=== PATIENT | female | born 1965 | race Caucasian/White ===

== ENCOUNTER 2021-09-04 16:30 | Inpatient (IN) | payer SELFPAY ==
[~2021-09-04] VITALS: Ht 165.1 cm; Wt 67.5 kg
[~2021-09-04 16:30] MED LIST: ATENOLOL25 MG PO; EFFEXOR-XR150 MG PO; LEVOTHROID0.2 M1 PO; LISINOPRIL20 MG PO; LOPRESSOR 550 MG/TAB PO; LORTAB 5/500 501 TAB PO; PRINIVIL10 MG PO; ROXICODONE15 MG PO; SYNTHROID 0.10.15 MG PO; TENORMIN 5050 MG/TAB PO; ZESTRIL40 MG PO
[2021-09-04 16:54] VITALS: BP 96/52; PULSE 111; TEMP 98.5
[2021-09-04] MEDS ORDERED: LOPRESSOR 550 MG/TAB PO (17:01)
[2021-09-04] MEDS ORDERED: CYMBALTA 60MG60 MG PO (17:02)
[2021-09-04] MEDS ORDERED: FOSAMAX5 MG PO (17:06)
[2021-09-04] MEDS ORDERED: MS CONTIN 115 MG/TAB PO (17:07)
[2021-09-04] MEDS ORDERED: FLEXERIL5 MG PO (17:08)
--- NOTE | 2021-09-04 18:28 | NUR ---
PT LAYING SUPINE IN BED ON ROOM AIR. PT STATES THAT SHE IS HAVING SOME NAUSEA. PT WAS GIVEN A TUB INCASE SHE NEEDS TO THROW UP. PT STATES HER MOUTH IS VERY DRY. GAVE HER SOME ICE CHIPS, WATER AND MOUTH SWABS. PT STATES SHE DOES NOT WANT ANYHTING TO EAT. PT STATES THAT SHE IS JUST TIRED AND REQUESTED A COLD WASHCLOTH FOR HER FACE. WASHCLOTH WAS GIVEN TO HER AND BLINDS WERE LOWERED SO THAT SHE IS ABLE TO REST QUIETLY. PT STATES NO OTHER NEEDS AT THIS TIME. WAS CALLED AND INFORMED THAT PT WAS HERE. ORDERED FLUIDS AND RENAL DIET. ORDERS WER PUT IN AND FLUIDS STARTED. RAYO IS DRAINING CLEAR YELLOW URINE AT BEDSIDE. PT ON ROOM AIR. CALL LIGHT IS WITHIN REACH.
[2021-09-04 19:47] VITALS: BP 94/50; PULSE 112; TEMP 98.1
[2021-09-04 23:48] VITALS: BP 102/57; PULSE 107; TEMP 98.5
[2021-09-05 04:17] VITALS: BP 109/50; PULSE 56; TEMP 98.4
--- NOTE | 2021-09-05 06:45 | NUR ---
Report received, assumed care for dayshift.
[2021-09-05 07:42] VITALS: BP 99/48; PULSE 111; TEMP 98
--- NOTE | 2021-09-05 08:20 | NUR ---
Dr Kaur called with new lab orders. Placed at this time.
[2021-09-05 08:54] LABS: MEAN CELL VOLUME 74 fl (80.0-100.0); MEAN CORPUSCULAR HGB CONC 34 g/dl (33.0-37.0); MEAN PLATELET VOLUME 10.1 fl (7.4-10.4); PLATELET COUNT 504 K/mm3 (130-400); RED BLOOD COUNT 3.77 M/mm3 (4.10-5.30); REDCELL DISTRIBUTION WIDTH-CV 16.3 % (11.5-14.5)
[2021-09-05 08:56] LABS: HEMOGLOBIN 9.5 g/dl (12.5-16.0); MEAN CORPUSCULAR HEMOGLOBIN 25 pg (27-31)
[2021-09-05 09:08] LABS: ANISOCYTOSIS 1+; BAND 11 % (0-10); LYMPHOCYTE 6 % (20.0-51.0); MICROCYTOSIS 1+; NEUTROPHILS 75 % (42.0-75.2); PLATELET ESTIMATE INCREASED (NORMAL)
[2021-09-05 09:10] LABS: ALBUMIN 2.2 gm/dL (3.5-5.0); ALKALINE PHOSPHATASE 159 U/L (40-150); ANION GAP 20 mmol/L (7-16); AST,SGOT 15 U/L (5-34); BILIRUBIN,TOTAL 0.3 mg/dL (0.2-1.2); BLOOD UREA NITROGEN 101 mg/dL (10-20); CALCIUM 6.6 mg/dL (8.4-10.2); CHLORIDE 100 mmol/L (98-107); CREATININE, serum 7.49 mg/dL (0.57-1.11); GLUCOSE 88 mg/dL (70-99); POTASSIUM 4.1 mmol/L (3.5-4.5); SODIUM 130 mmol/L (136-145); TOTAL PROTEIN 5.9 gm/dL (6.2-8.1)
[2021-09-05 09:21] LABS: ALANINE AMINOTRANSFERASE < 6 U/L (0-55)
[2021-09-05 09:23] LABS: CARBON DIOXIDE 10 mmol/L (22-29)
--- NOTE | 2021-09-05 09:23 | NUR ---
CRITICAL CO2 LEVEL CALLED INTO [facility] ON ICU
--- NOTE | 2021-09-05 10:57 | NUR ---
SW met with patient to complete intake. Patient provides that she lives in [place] with her Julian [phone]. Patient states that she does not use DME and is independent with ADL's. PCP is Dr. Rodríguez, and pharmacy is [facility]. Patient states that she does not have anyone appointed as her DPOA/HC and does not wish to appoint anyone at this time. Patient states that she plans to return to her home upon DC. SW will continue to follow. DC plan: home
[2021-09-05 13:12] VITALS: BP 96/50; PULSE 111; TEMP 97.7
[2021-09-05 16:51] VITALS: BP 101/52; PULSE 115; TEMP 97.6
[2021-09-05 17:54] LABS: CREATININE, serum 6.56 mg/dL (0.57-1.11); FRACTIONAL EXCRETION OF NA+ 2.49 %
--- NOTE | 2021-09-05 18:02 | NUR ---
Patient had an uneventful day. Denied pain/nausea/shortness of breath. VS remained stable. 1/2NS@75ml/hr to left AC 20g. Schenider cath with yellow urine. SCDs bilat. Tele report ST. Denies current needs. Call light in reach. Will monitor.
[2021-09-05 19:37] VITALS: BP 121/73; PULSE 112; TEMP 97.7
--- NOTE | 2021-09-05 21:11 | NUR ---
Patient is in restroom. Assisted. Alert and oriented x 4, Tachycardic. Receiving 75ML/HR NS. Telemetry in place. Assessment completed, medications provided. No other needs at this time. Call maurice wing.
[2021-09-05 22:00] LABS: CLOSTRIDIUM DIFF A/B NEG; CLOSTRIDIUM DIFF A/B INTERP No C.diff present
[2021-09-05 23:54] VITALS: BP 101/66; PULSE 115; TEMP 98
[2021-09-06 03:42] VITALS: BP 114/62; PULSE 112; TEMP 97.6
--- NOTE | 2021-09-06 06:30 | NUR ---
Report received, assumed care for day shift.
[2021-09-06 06:41] LABS: MEAN CELL VOLUME 75 fl (80.0-100.0); MEAN CORPUSCULAR HGB CONC 34 g/dl (33.0-37.0); MEAN PLATELET VOLUME 10.3 fl (7.4-10.4); PLATELET COUNT 532 K/mm3 (130-400); RED BLOOD COUNT 3.63 M/mm3 (4.10-5.30); REDCELL DISTRIBUTION WIDTH-CV 15.9 % (11.5-14.5)
[2021-09-06 06:43] LABS: HEMATOCRIT 27.3 % (37.0-47.0); HEMOGLOBIN 9.2 g/dl (12.5-16.0); MEAN CORPUSCULAR HEMOGLOBIN 25 pg (27-31)
[2021-09-06 07:02] LABS: ALBUMIN 2.1 gm/dL (3.5-5.0); CALCIUM 7.5 mg/dL (8.4-10.2); CREATININE, serum 4.58 mg/dL (0.57-1.11); PHOSPHOROUS 3.3 mg/dL (2.3-4.7); POTASSIUM 3.8 mmol/L (3.5-4.5)
--- NOTE | 2021-09-06 07:40 | NUR ---
Sarai Pino, construction equipment mechanic helper for nephrology notified of critical CO2 of 11. New orders received and initiated.
[2021-09-06 07:52] VITALS: BP 112/66; PULSE 117; TEMP 98.1
--- NOTE | 2021-09-06 08:40 | NUR ---
Assessment complete. A&Ox3-very drowsy but answers questions appropriately. Denies pain/shortness of breath. States she is still nauseated intremittently. VS remaine stable. TELE reporting ST. Schneider cath with clear yellow urine. Left AC 20g with 1/2NS@75ml/hr infusing without difficulty. Right AC 20g flushes without difficulty. Noted to have swelling in right hand to elbow-1+. Plan of care discussed for this shift to include meds/IV fluids/calling for questions/concerns. Verbalizes understanding. Call light in reach. Will monitor.
[2021-09-06 12:21] VITALS: BP 124/64; PULSE 104; TEMP 98.2
--- NOTE | 2021-09-06 12:33 | NUR ---
Called with c/o abdominal cramping and nausea. States it is coming in waves-zofran/tylenol given per dr order. Will monitor.
[2021-09-06 16:23] VITALS: BP 127/75; PULSE 117; TEMP 98.4
--- NOTE | 2021-09-06 17:05 | NUR ---
Patient c/o nausea x1 this shift and received zofran with good results. Has tolerated clear liquids but is not tolerating ordered diet. VS remain stable. Schneider cath with clear yellow urine. 1/2NS@50mls/hr to left AC infusing without difficulty. Noted to have +2 edema to right upper extremity from fingers to elbow area. Patient states this is baseline due to recent fracture. Denies current needs. Call light in reach. Will monitor.
[2021-09-06 19:56] VITALS: BP 139/68; PULSE 123; TEMP 97.9
[2021-09-06 23:54] VITALS: BP 132/85; PULSE 115; TEMP 99.4
[2021-09-07 03:35] VITALS: BP 139/82; PULSE 121; TEMP 99
--- NOTE | 2021-09-07 06:26 | NUR ---
ASSUMED CARE OF PATIENT AFTER RECEIVING BEDSIDE REPORT. ASSESSMENT COMPLETED, VSS. PATIENT STATED PAIN IS NOT BEING WELL CONTROLLED AND IS ON MORPHINE AT BASELINE FOR PAIN. RN RELAYED THIS TO DR. CHAVIRA AND CRUZ ZHANG. NO CHANGES TO PAIN REGIMINE AT THIS TIME. PATIENT ALSO STATED NAUSEA IS NOT RELIEVED BY ZOFRAN, ORDER RECEIVED FROM CRUZ ZHANG TO INCREASE ZOFRAN TO 8MG. NO ACUTE EVENTS OVERNIGHT. BEDSIDE REPORT TO BE GIVEN TO ONCOMING SHIFT.
[2021-09-07 06:37] LABS: HEMOGLOBIN 10.2 g/dl (12.5-16.0); MEAN CELL VOLUME 74 fl (80.0-100.0); MEAN CORPUSCULAR HEMOGLOBIN 25 pg (27-31); MEAN CORPUSCULAR HGB CONC 33 g/dl (33.0-37.0); MEAN PLATELET VOLUME 9.6 fl (7.4-10.4); PLATELET COUNT 558 K/mm3 (130-400); RED BLOOD COUNT 4.15 M/mm3 (4.10-5.30); REDCELL DISTRIBUTION WIDTH-CV 16.2 % (11.5-14.5)
[2021-09-07 06:41] LABS: HEMATOCRIT 30.6 % (37.0-47.0)
[2021-09-07 06:57] VITALS: BP 158/82; PULSE 122; TEMP 97.5
[2021-09-07 07:04] LABS: ALBUMIN 2.3 gm/dL (3.5-5.0); CALCIUM 8.7 mg/dL (8.4-10.2); CREATININE, serum 2.05 mg/dL (0.57-1.11); PHOSPHOROUS 3.4 mg/dL (2.3-4.7); POTASSIUM 3.3 mmol/L (3.5-4.5)
--- NOTE | 2021-09-07 08:25 | NUR ---
Assessment completed, alert/oriented, blood pressures improved bossman admitt/ she is still tachy -ST on tele and I will notify attending physician, her chief complaint is uncontrollable watery diarrhea/ GI panel was negative, nausea is resolve and denies any vomitting, acute on chornic renal insufficiency / having a renal US today to rule out ATN, glez in place and patent with clear yellow urine, she is tolerating PO intake and is on IVF, abx continue for now/ BC pending, denies other needs, will continue to monitor
[2021-09-07] MEDS ORDERED: NORVASC2.5 MG PO (10:44)
[2021-09-07 11:04] VITALS: BP 136/72; PULSE 125; TEMP 97.7
--- NOTE | 2021-09-07 12:21 | NUR ---
Elizabeth: Buddhist Situation: Sales And Marketing Analyst stopped by on rounds Background: Pt is doing well Assessment: Good conversation from [facility] Recommendation: Sales And Marketing Analyst will follow up as needed
--- NOTE | 2021-09-07 12:48 | NUR ---
The patient is self pay. [facility]
[2021-09-07 15:32] LABS: MUCOUS Present (NOT PRESENT); PH 6 (5-8); SQUAMOUS EPITHELIAL None Seen /hpf (0-10); URINE APPEARANCE Clear (CLEAR/HAZY); URINE BACTERIA Rare /hpf (NONE SEEN); URINE BILIRUBIN Negative (NEGATIVE); URINE BLOOD 2+ (NEGATIVE); URINE COLOR Yellow (YELLOW); URINE GLUCOSE Negative (NEGATIVE); URINE KETONE Trace (NEGATIVE); URINE LEUKOCYTE ESTERASE Negative (NEGATIVE); URINE NITRATE Negative (NEGATIVE); URINE PROTEIN(semi-quant) Negative (NEGATIVE); URINE RBC 20-50 /hpf (0-2); URINE UROBILINOGEN Negative (NEGATIVE)
[2021-09-07 15:38] LABS: COLLECTION METHOD CLEAN CATCH
[2021-09-07 16:01] VITALS: BP 137/76; PULSE 82; TEMP 97.9
[2021-09-07 20:10] VITALS: BP 145/78; PULSE 86; TEMP 98.5
--- NOTE | 2021-09-07 20:38 | NUR ---
DR CASTLE AND DR PENNINGTON CALLED FOR CONSULT AND OR GIVE UPDATE. 10 LOOSE STOOLS TODAY AND GEORGE NOT WORKING FOR N/V.
[2021-09-08] VITALS (11 sets, daily range): BP systolic 135–152; BP diastolic 76–85; PULSE 81–117; TEMP 97.5–99.2
[2021-09-08 06:21] LABS: MEAN CELL VOLUME 73 fl (80.0-100.0); MEAN CORPUSCULAR HGB CONC 33 g/dl (33.0-37.0); MEAN PLATELET VOLUME 9.3 fl (7.4-10.4); PLATELET COUNT 555 K/mm3 (130-400); RED BLOOD COUNT 3.91 M/mm3 (4.10-5.30)
[2021-09-08 06:24] LABS: HEMATOCRIT 28.7 % (37.0-47.0); HEMOGLOBIN 9.6 g/dl (12.5-16.0); MEAN CORPUSCULAR HEMOGLOBIN 25 pg (27-31)
[2021-09-08 06:41] LABS: ALBUMIN 2.3 gm/dL (3.5-5.0); CALCIUM 8.6 mg/dL (8.4-10.2); CREATININE, serum 1.12 mg/dL (0.57-1.11); PHOSPHOROUS 2.6 mg/dL (2.3-4.7); POTASSIUM 3.2 mmol/L (3.5-4.5)
--- NOTE | 2021-09-08 06:56 | NUR ---
Report received, assumed care for day shift.
--- NOTE | 2021-09-08 08:55 | NUR ---
Assessment complete. A&Ox3. Denies pain/nausea/shortness of breath. Denies stools. VS stable. TELE reporting regular SR-ST. Scoring 1 on detox protocol only for appetite. Patient states she is feeling better just weak. IV to left AC with 1/2NS@50ml/hr infusing without difficulty. Plan of care discussed for meds/stool specimen/calling for questions/concerns. Verbalizes understanding. Call light in reach. Will monitor.
--- NOTE | 2021-09-08 11:02 | NUR ---
Dr Rehman called for updates. Information given.
--- NOTE | 2021-09-08 11:51 | NUR ---
CK Burch notified of new ortho consult.
--- NOTE | 2021-09-08 12:10 | NUR ---
Sitting up in bed very tearful stating she cant believe she has let herself go like this. States she understands she should not be drinking and is going to try hard to get her health back on track. Did not take in any of the clear liquids provided earlier. Encouraged to at least try to order a lunch tray. Verbalizes understanding. Noted to have 99.2 oral temp/and 103 pulse at 2 hour vital check. No tremors/no anxiety. Denies any current needs. Call light in reach. Will monitor.
--- NOTE | 2021-09-08 14:10 | NUR ---
Continues to rest in bed watching TV. Much calmer now. Has tolerated clear liquids but still refusing solid foods. Denies pain/nausea/shortness of breath. VS remain stable. Denies current questions/concerns. Call light in reach. Will monitor.
--- NOTE | 2021-09-08 16:15 | NUR ---
Vancomycin Initial Dosing Pharmacy Note Ordering provider: Carlos Kaur MD Indication/duration: wrist infection, 14 days LABS: SCr 1.12, CrCl~46, GFR 51 Recommendation: Will give Vancomycin 1 gm IV q12h. Pharmacy will continue to closely monitor and check Vancomycin trough. Maintenance dose: 1 gram every 12 hours Trough goal: 15-20 ug/mL
--- NOTE | 2021-09-08 16:52 | NUR ---
This nurse called pharmacy for clarification on Vanco order-to give only the 1gram dose.
--- NOTE | 2021-09-08 18:43 | NUR ---
Patient had an uneventful night. Ortho seen patient at the end of this shift. Wrist x ray complete. IV to left AC with 1/2NS@50ml/hr-infusing without difficulty. TELE reports regular ST. VS remained stable. Denies current needs. Call light in reach. Will monitor.
[2021-09-09] VITALS (9 sets, daily range): BP systolic 130–150; BP diastolic 76–94; PULSE 72–101; TEMP 98–98.7
--- NOTE | 2021-09-09 05:25 | NUR ---
RESTED THROUGH THE NIGHT WITHOUT INCIDENT. NEEDS MET. CALL LIGHT WI REACH.
[2021-09-09 06:33] LABS: MEAN CELL VOLUME 73 fl (80.0-100.0); MEAN CORPUSCULAR HGB CONC 34 g/dl (33.0-37.0); RED BLOOD COUNT 3.95 M/mm3 (4.10-5.30); REDCELL DISTRIBUTION WIDTH-CV 16.3 % (11.5-14.5)
[2021-09-09 06:34] LABS: HEMATOCRIT 28.9 % (37.0-47.0); HEMOGLOBIN 9.9 g/dl (12.5-16.0); MEAN CORPUSCULAR HEMOGLOBIN 25 pg (27-31); PLATELET COUNT 452 K/mm3 (130-400)
[2021-09-09 06:56] LABS: ALBUMIN 2.3 gm/dL (3.5-5.0); CALCIUM 8.4 mg/dL (8.4-10.2); CREATININE, serum 0.78 mg/dL (0.57-1.11); PHOSPHOROUS 2.1 mg/dL (2.3-4.7); POTASSIUM 3.1 mmol/L (3.5-4.5)
--- NOTE | 2021-09-09 10:00 | NUR ---
Assessment completed, alert/oriented, vital signs stable, reprots abd pain worse this morining and also having some nausea/ Phenergan given IV, she reports still having watery stools but a little less frequent, glez remains in place and patent with clear yellow urine/ creat has normalized, WBC up today from yesterday/ no fevers, denies needs at this time, will continue to monitor
--- NOTE | 2021-09-09 11:01 | NUR ---
DENIA met with the patient to follow up and review discharge plan. The patient states that she is doing okay. She is hopeful that she can discharge soon. The patient plans on returning home with her . She states that the financial counselor has not met with her yet. DENIA contacted Georgina and asked that she meet with the patient about a possible Medicaid application. No additional needs at this time.
--- NOTE | 2021-09-09 14:20 | NUR ---
Georgina, with financial counseling, reports that she checked with her team and it does not look like the patient has any qualifying diagnoses to qualify her for Medicaid. Dr. Kaur then notified DENIA that the patient is going to need IV Vanco daily for six weeks upon discharge and that he would look at [facility] for the patient. DENIA informed Dr. Kaur how the patient does not have insurance and what Georgina with financial counseling said. DENIA contacted Dot at [facility] to inquire if they can do eric and do IV antibiotics, if uninsured. Dot reports that they just had a trauma come in and that one of their staff members, Edelmira, would have to contact DENIA back. DENIA met with the patient to discuss the option of coming to our Express Unit for the IV antibiotic. The patient states that she just talked to Dr. Kaur and that Dr. Kaur is going to switch her to an oral antibiotic. The patient is interested in obtaining a GoodRx discount card. DENIA to provide to the patient.
--- NOTE | 2021-09-10 | NUR ---
STARTED NEW LING TO LUE ARM. REMOVED BOTH IV DUE TO SOILED DRESSING TO L AC AND RUE SWELLING. CONTINUES ON ABX THERAPY. PATIENT HASN'T HAD ANY DIARHEA NOTED AT THIS TIME. DAY SHIFT NURSE STATED THAT PATIENT DID HAVE X2 EPISODES. CADE REMOVED AROUND 1730 PENDING VOID. PATIENT DID STATE THAT SHE VOIDED IN TOILET AND FLUSHED. EDUCATED PATIENT ON NOTIFYING NURSE TO ENSURE ADEQUATE VOID POST CADE REMOVAL. ELEVATING RUE AND APPLYING ICE ON AND OFF WHILE ASSESSING SKIN INTEGRITY. NO NAUSEA NOTED AT THIS TIME. WILL CONTINUE TO MONITOR CALL LIGHT MARK JOHNSON.
[2021-09-10 00:10] VITALS: BP 129/74; PULSE 80; TEMP 98.3
--- NOTE | 2021-09-10 03:02 | NUR ---
PATIENT DID HAVE LOOSE STOOL NOTED THIS EVENING, PROVIDED PRN IMMODIUM PATIENT REQUESTING STATED SHE DIDN'T WANT TO FALL ASLEEP AND HAVE ACCIDENT. PATIENT VOIDING WITHOUT DIFFICULTY POST VOID. SLEEPING AT THIS TIME RUE ELEVEATED ON PILLOW. WILL CONTINUE OT MONITOR FOR ANY CHANGES.
[2021-09-10 04:20] VITALS: BP 154/81; PULSE 71; TEMP 98.3
[2021-09-10 06:24] LABS: MEAN CELL VOLUME 75 fl (80.0-100.0); MEAN CORPUSCULAR HGB CONC 34 g/dl (33.0-37.0); MEAN PLATELET VOLUME 9.7 fl (7.4-10.4); RED BLOOD COUNT 3.64 M/mm3 (4.10-5.30); REDCELL DISTRIBUTION WIDTH-CV 16.7 % (11.5-14.5)
[2021-09-10 06:26] LABS: HEMATOCRIT 27.4 % (37.0-47.0); HEMOGLOBIN 9.2 g/dl (12.5-16.0); MEAN CORPUSCULAR HEMOGLOBIN 25 pg (27-31); PLATELET COUNT 309 K/mm3 (130-400)
[2021-09-10 06:47] LABS: ALBUMIN 2.3 gm/dL (3.5-5.0); CALCIUM 7.8 mg/dL (8.4-10.2); CREATININE, serum 0.71 mg/dL (0.57-1.11); PHOSPHOROUS 2.4 mg/dL (2.3-4.7); POTASSIUM 3.3 mmol/L (3.5-4.5)
[2021-09-10 08:00] VITALS: BP 162/87; PULSE 88; TEMP 98
[2021-09-10 11:51] VITALS: BP 157/95; PULSE 77; TEMP 97.9
[2021-09-10] MEDS ORDERED: DOXYCYCLINE HY100 MG PO (12:08)
[2021-09-10] MEDS ORDERED: IMODIUM 2MG CAPS2 MG PO (12:38)
--- NOTE | 2021-09-10 12:46 | NUR ---
The patient's attending is prescribing an oral antibiotic instead of IV. SW met with the patient and provided her with the GoodRx discount card. The patient had no concerns for SW and plans on returning home with her today. No additional needs at this time.
--- NOTE | 2021-09-10 14:16 | NUR ---
Assumed care from casino shift manager. Patient alert and oriented x4. VSS. Assessment performed. Patient denies pain at this time. AM meds administered.
--- NOTE | 2021-09-10 15:25 | NUR ---
Patient provided discharge instructions. information on medication, and follow up appointments and instructions. Patient denied any questions or concerns. IV dc'd. Patient escorted out via wheelchair.
== END 2021-09-10 14:21 | disposition home or self-care (01) | DRG 683 ==
LOC: MEDICAL 16:30
PROVIDERS: Nurse Practitioner; Registered Nurse; ADMIT Internal Medicine Nephrology
DX: N17.0 Acute kidney failure with tubular necrosis (principal); E87.2 Acidosis; E87.1 Hypo-osmolality and hyponatremia; I10 Essential (primary) hypertension; E05.00 Thyrotoxicosis with diffuse goiter without thyrotoxic crisis or storm; I95.9 Hypotension, unspecified; E86.9 Volume depletion, unspecified; D64.9 Anemia, unspecified; D72.829 Elevated white blood cell count, unspecified; D75.839 Thrombocytosis, unspecified; R19.7 Diarrhea, unspecified; N14.1 Nephropathy induced by other drugs, medicaments and biological substances; T39.395A Adverse effect of other nonsteroidal anti-inflammatory drugs [NSAID], initial encounter; T36.8X5A Adverse effect of other systemic antibiotics, initial encounter; Z87.891 Personal history of nicotine dependence; Z23 Encounter for immunization
CPT/HCPCS: C9113; J2543; J2550; J3370; J7050

== ENCOUNTER 2022-08-24 19:48 | Emergency (ER) | payer BC ==
[~2022-08-24] VITALS: Ht 165.1 cm; Wt 72.7 kg
[~2022-08-24 19:48] MED LIST changes: +CYMBALTA 60MG60 MG PO; +DOXYCYCLINE HY100 MG PO; +FLEXERIL5 MG PO; +FOSAMAX5 MG PO; +IMODIUM 2MG CAPS2 MG PO; +MS CONTIN 115 MG/TAB PO; +NORVASC2.5 MG PO
[2022-08-24 19:50] VITALS: TEMP 98.2
[2022-08-24 21:48] LABS: BASO # 0.1 K/mm3 (0.0-0.2); EOS # 0.5 K/mm3 (0.0-0.7); EOS % 7.3 % (0.0-4.0); GRAN # 4.5 K/mm3 (1.4-6.5); GRAN % 72.1 % (42.2-75.2); LYMPH # 0.8 K/mm3 (1.2-3.4); LYMPH % 12.9 % (20.0-51.0); MEAN CELL VOLUME 90 fl (80.0-100.0); MEAN CORPUSCULAR HGB CONC 32 g/dl (33.0-37.0); MEAN PLATELET VOLUME 9.3 fl (7.4-10.4); MONO # 0.4 K/mm3 (0.1-0.6); MONO % 6.4 % (1.7-9.3); PLATELET COUNT 303 K/mm3 (130-400); RED BLOOD COUNT 3.28 M/mm3 (4.10-5.30); REDCELL DISTRIBUTION WIDTH-CV 14.5 % (11.5-14.5)
[2022-08-24 21:49] LABS: HEMATOCRIT 29.5 % (37.0-47.0); HEMOGLOBIN 9.5 g/dl (12.5-16.0); MEAN CORPUSCULAR HEMOGLOBIN 29 pg (27-31)
[2022-08-24 21:59] LABS: ARTERIAL BLD GAS O2 SATURATION 95.8 % (92-100); ARTERIAL BLOOD GAS BASE EXCESS 0.6 (-2-2); ARTERIAL BLOOD GAS HCO3 26.5 meq/L (22-26); ARTERIAL BLOOD GAS PCO2 48.8 mmHg (35-45); ARTERIAL BLOOD GAS pH 7.35 (7.35-7.45)
[2022-08-24 22:02] LABS: ALBUMIN 3.8 gm/dL (3.5-5.0); BILIRUBIN,TOTAL 0.3 mg/dL (0.2-1.2); CALCIUM 9.5 mg/dL (8.4-10.2); CREATININE, serum 0.86 mg/dL (0.57-1.11); POTASSIUM 4.4 mmol/L (3.5-4.5); TOTAL PROTEIN 6.6 gm/dL (6.2-8.1)
[2022-08-25 00:30] LABS: COLLECTION METHOD IN
[2022-08-25 00:34] LABS: SQUAMOUS EPITHELIAL None Seen /hpf (0-10); URINE BACTERIA None Seen /hpf (NONE SEEN); URINE RBC None Seen /hpf (0-2)
[2022-08-25 00:35] VITALS: BP 145/90; PULSE 112
[2022-08-25 00:36] LABS: URINE APPEARANCE Clear (CLEAR/HAZY); URINE COLOR Yellow (YELLOW)
[2022-08-25 00:37] LABS: URINE BLOOD Negative (NEGATIVE); URINE GLUCOSE Negative (NEGATIVE); URINE KETONE Negative (NEGATIVE); URINE NITRATE Negative (NEGATIVE); URINE PROTEIN(semi-quant) Negative (NEGATIVE); URINE UROBILINOGEN 0.2 E.U/dL (0.2-1.0)
== END 2022-08-25 00:38 | disposition short-term general hospital (02) ==
LOC: COL.ER 19:48
PROVIDERS: Nurse Practitioner Primary Care
DX: S82.142A Displaced bicondylar fracture of left tibia, initial encounter for closed fracture (principal); S82.252A Displaced comminuted fracture of shaft of left tibia, initial encounter for closed fracture; R09.02 Hypoxemia; G89.29 Other chronic pain; Z79.1 Long term (current) use of non-steroidal anti-inflammatories (NSAID); Z28.310 Unvaccinated for COVID-19; W10.9XXA Fall (on) (from) unspecified stairs and steps, initial encounter; Y92.009 Unspecified place in unspecified non-institutional (private) residence as the place of occurrence of the external cause
CPT/HCPCS: J1885; Q9967

== ENCOUNTER 2023-09-03 12:15 | Emergency (ER) | payer OTHER ==
[~2023-09-03] VITALS: Ht 165.1 cm; Wt 59.1 kg
[~2023-09-03 12:15] MED LIST changes: +ATARAX 10MG10 MG/TAB PO; +CALCIUM-500 5001 CTB PO; +CARAFATE 1GM1 G PO; +CEFTIN 250250 MG/TAB PO; +DOXYCYCLINE 10100 MG PO; +EUTHYROX175 MCG PO; +FERRO-TIME325 MG PO; +FERROUSAL325 MG PO; +FLEXERIL 1010 MG/TAB PO; +FOSAMAX 70MG TA70 MG PO; +MOTRIN 800800 MG/TAB PO; +NEURONTIN600 MG/TAB PO; +OMNICEF 300MG300 MG PO; +OSCAL 500 TAB500 MG PO; +PEPCID 20MG TAB20 MG PO; +PREDNISONE20 MG PO; +PRINIVIL20 MG PO; +PROTONIX 40MG T40 MG PO; +VITAMIN C500 MG PO; +VITAMIN D250 MCG PO; +ZOCOR 20MG20 MG PO
[2023-09-03 12:26] VITALS: TEMP 97.8
[2023-09-03] MEDS ORDERED: AMITRIPTYLINE H25 M1 PO (12:35)
[2023-09-03] MEDS ORDERED: NORVASC 10MG10 MG PO (12:36)
[2023-09-03] MEDS ORDERED: VITAMIN D31000 I1 PO (12:39)
[2023-09-03] MEDS ORDERED: VOLTAREN GEL 1%1 TU TP (12:41)
[2023-09-03] MEDS ORDERED: CARDURA 2MG2 MG PO (12:41)
[2023-09-03] MEDS ORDERED: FERROUS SU325 MG/TAB PO (12:42)
[2023-09-03] MEDS ORDERED: NORCO 325 MG-51 TAB PO (12:43)
[2023-09-03] MEDS ORDERED: KEPPRA XR500 MG PO (12:44)
[2023-09-03] MEDS ORDERED: PROCTOCREAM-HC2.5% RC (12:44)
[2023-09-03] MEDS ORDERED: SYNTHROID0.175 MG PO (12:45)
[2023-09-03] MEDS ORDERED: BACTROBAN15 GM TOP (12:46)
[2023-09-03] MEDS ORDERED: PROTONIX 40MG T40 MG PO (12:46)
[2023-09-03 12:47] LABS: BASO # 0.1 K/mm3 (0.0-0.2); BASO % 0.5 % (0.0-2.0); EOS # 0.2 K/mm3 (0.0-0.7); EOS % 1.8 % (0.0-4.0); GRAN # 7.9 K/mm3 (1.4-6.5); LYMPH # 1.3 K/mm3 (1.2-3.4); LYMPH % 12.7 % (20.0-51.0); MEAN CELL VOLUME 75 fl (80.0-100.0); MEAN CORPUSCULAR HGB CONC 30 g/dl (33.0-37.0); MEAN PLATELET VOLUME 8.8 fl (7.4-10.4); MONO # 0.5 K/mm3 (0.1-0.6); MONO % 5.1 % (1.7-9.3); PLATELET COUNT 606 K/mm3 (130-400); RED BLOOD COUNT 3.83 M/mm3 (4.10-5.30); REDCELL DISTRIBUTION WIDTH-CV 17.2 % (11.5-14.5)
[2023-09-03] MEDS ORDERED: ZOCOR 20MG20 MG PO (12:47)
[2023-09-03] MEDS ORDERED: ULTRAM 50MG TAB50 MG PO (12:47)
[2023-09-03 12:50] LABS: HEMATOCRIT 28.7 % (37.0-47.0); HEMOGLOBIN 8.5 g/dl (12.5-16.0); MEAN CORPUSCULAR HEMOGLOBIN 22 pg (27-31)
[2023-09-03 13:02] LABS: ALBUMIN 3.2 g/dL (3.5-5.0); BILIRUBIN,TOTAL 0.2 mg/dL (0.2-1.2); CALCIUM 10.9 mg/dL (8.4-10.2); CREATININE, serum 1.92 mg/dL (0.57-1.11); POTASSIUM 5.6 mEq/L (3.5-4.5); TOTAL PROTEIN 8.5 g/dl (6.2-8.1)
[2023-09-03] MEDS ORDERED: TRIAMCINOLONE A15 G3 TP (13:06)
[2023-09-03] MEDS ORDERED: Doxycycline Monohydrate 100 MG CAP PO ONE (13:45)
[2023-09-03] MEDS ORDERED: DOXYCYCLINE HY100 MG PO (13:46)
[2023-09-03 14:05] VITALS: BP 122/78; PULSE 74
== END 2023-09-03 14:05 | disposition home or self-care (01) ==
LOC: COL.ER 12:15
PROVIDERS: Emergency Medicine
DX: N18.9 Chronic kidney disease, unspecified (principal); L01.00 Impetigo, unspecified; E87.5 Hyperkalemia

== ENCOUNTER 2023-09-28 12:30 | Inpatient (IN) | payer OTHER ==
[~2023-09-28] VITALS: Ht 165.1 cm; Wt 54.5 kg
[~2023-09-28 12:30] MED LIST changes: +AMITRIPTYLINE H25 M1 PO; +BACTROBAN15 GM TOP; +CARDURA 2MG2 MG PO; +FERROUS SU325 MG/TAB PO; +KEPPRA XR500 MG PO; +NORCO 325 MG-51 TAB PO; +NORVASC 10MG10 MG PO; +PROCTOCREAM-HC2.5% RC; +SYNTHROID0.175 MG PO; +TRIAMCINOLONE A15 G3 TP; +ULTRAM 50MG TAB50 MG PO; +VITAMIN D31000 I1 PO; +VOLTAREN GEL 1%1 TU TP
[2023-10-04] VITALS (7 sets, daily range): BP systolic 104–118; BP diastolic 60–74; PULSE 74–85; TEMP 98.1–98.4
[2023-10-04] MEDS ORDERED: Melatonin 3 MG TAB PO PRN (05:45)
[2023-10-04] MEDS ORDERED: diphenhydrAMINE 25 MG CAP PO PRN (05:45)
[2023-10-04] MEDS ORDERED: traMADol 50 MG TAB PO PRN (05:45)
[2023-10-04] MEDS ORDERED: oxyCODONE 5 MG TAB PO PRN (05:45)
[2023-10-04] MEDS ORDERED: Polyethylene Glycol 3350 17 GM PDS PO PRN (05:45)
[2023-10-04] MEDS ORDERED: Acetaminophen 325 MG TAB PO PRN (05:45)
[2023-10-04] MEDS ORDERED: LORazepam 0.5 MG TAB PO PRN (05:45)
[2023-10-04] MEDS ORDERED: tiZANidine 4 MG TAB PO PRN (05:45)
[2023-10-04] MEDS ORDERED: traZODone 50 MG TAB PO PRN ×2 (06:15→10:00)
[2023-10-04] MEDS ORDERED: levETIRAcetam 500 MG TAB PO SCH (09:00)
[2023-10-04] MEDS ORDERED: DULoxetine 60 MG CAP PO SCH (09:00)
[2023-10-04] MEDS ORDERED: Gabapentin 400 MG CAP PO SCH (09:00)
[2023-10-04] MEDS ORDERED: DAPTOmycin 400 MG in NS 8 ML IV SCH (09:00)
[2023-10-04] MEDS ORDERED: Sennosides/Docusate 8.6-50 MG TAB PO SCH (09:00)
[2023-10-04] MEDS ORDERED: Thiamine 100 MG TAB PO SCH (09:00)
[2023-10-04] MEDS ORDERED: Metoprolol Tartrate 50 MG TAB PO SCH (09:00)
[2023-10-04] MEDS ORDERED: Calcium Carb/Vit D3 500 mg-200 Units TAB PO SCH (09:00)
[2023-10-04] MEDS ORDERED: amLODIPine 10 MG TAB PO SCH (09:00)
[2023-10-04] MEDS ORDERED: Multivitamin TAB PO SCH (12:00)
[2023-10-04] MEDS ORDERED: Ferrous Sulfate 325 MG TAB PO SCH (12:00)
[2023-10-04] MEDS ORDERED: Gabapentin 300 MG CAP PO SCH (14:00)
[2023-10-04] MEDS ORDERED: Amitriptyline 25 MG TAB PO SCH (21:00)
[2023-10-05 05:32] VITALS: BP 111/66; PULSE 77; TEMP 97.8
[2023-10-05 07:00] VITALS: BP_SYST 111
[2023-10-05] MEDS ORDERED: Lidocaine 4% Topical Patch TP SCH (09:00)
[2023-10-05 17:49] VITALS: BP 122/73; PULSE 78; TEMP 98.2
[2023-10-05 18:50] VITALS: BP_SYST 122
[2023-10-05 22:04] VITALS: BP 103/64; PULSE 84
[2023-10-06 05:15] VITALS: BP 111/65; PULSE 98; TEMP 98
[2023-10-06 07:29] VITALS: BP_SYST 111
[2023-10-06] MEDS ORDERED: Methyl Salicylate/Menthol Cream 85 GM TUBE TP SCH (09:00)
[2023-10-06 16:56] VITALS: BP 99/63; PULSE 79; TEMP 98.4
[2023-10-06 19:06] VITALS: BP_SYST 99
[2023-10-06 21:50] VITALS: BP 129/71
[2023-10-07 05:29] VITALS: BP 108/68; PULSE 74; TEMP 98.2
[2023-10-07 07:00] VITALS: BP_SYST 108
[2023-10-07 16:28] LABS: BASO # 0.1 K/mm3 (0.0-0.2); BASO % 0.8 % (0.0-2.0); EOS # 0.6 K/mm3 (0.0-0.7); GRAN # 4.9 K/mm3 (1.4-6.5); GRAN % 61.1 % (42.2-75.2); LYMPH # 1.8 K/mm3 (1.2-3.4); LYMPH % 22.1 % (20.0-51.0); MEAN CELL VOLUME 77 fl (80.0-100.0); MEAN CORPUSCULAR HGB CONC 32 g/dl (33.0-37.0); MEAN PLATELET VOLUME 8.8 fl (7.4-10.4); MONO # 0.6 K/mm3 (0.1-0.6); MONO % 7.6 % (1.7-9.3); PLATELET COUNT 509 K/mm3 (130-400); RED BLOOD COUNT 3.26 M/mm3 (4.10-5.30)
[2023-10-07 16:30] LABS: HEMOGLOBIN 8.1 g/dl (12.5-16.0); MEAN CORPUSCULAR HEMOGLOBIN 25 pg (27-31)
[2023-10-07 16:49] LABS: ALBUMIN 2.9 g/dL (3.5-5.0); BILIRUBIN,TOTAL 0.2 mg/dL (0.2-1.2); C-REACTIVE PROTEIN 0.48 mg/dL (0.00-0.50); CALCIUM 10.2 mg/dL (8.4-10.2); CREATININE, serum 1.32 mg/dL (0.57-1.11); POTASSIUM 4.9 mEq/L (3.5-4.5); TOTAL PROTEIN 6.6 g/dl (6.2-8.1)
[2023-10-07 17:00] VITALS: BP 112/64; PULSE 80; TEMP 98.2
[2023-10-07 18:54] VITALS: BP_SYST 112
[2023-10-08 05:56] VITALS: BP 149/78; PULSE 90; TEMP 98.5
[2023-10-08 07:48] VITALS: BP_SYST 149
[2023-10-08 16:58] VITALS: BP 127/73; PULSE 86; TEMP 98
[2023-10-08 19:00] VITALS: BP_SYST 127
[2023-10-08 22:11] VITALS: BP 106/52
[2023-10-09 05:59] VITALS: BP 115/69; PULSE 82; TEMP 97.9
[2023-10-09 07:01] VITALS: BP_SYST 115
[2023-10-09 16:44] VITALS: BP 118/66; PULSE 97; TEMP 98.5
[2023-10-09 18:58] VITALS: BP_SYST 118
[2023-10-09 21:20] VITALS: BP 107/60; PULSE 83
[2023-10-10 06:03] VITALS: BP 135/80; PULSE 90; TEMP 98.2
[2023-10-10 07:00] VITALS: BP_SYST 135
[2023-10-10 10:02] LABS: CREATININE, serum 1.22 mg/dL (0.57-1.11); POTASSIUM 4.7 mEq/L (3.5-4.5)
[2023-10-10 17:25] VITALS: BP 124/75; PULSE 88; TEMP 97.4
[2023-10-10 19:20] VITALS: BP_SYST 124
[2023-10-10 21:10] VITALS: BP 120/69; PULSE 93; TEMP 98.4
[2023-10-11 05:29] VITALS: BP 129/72; PULSE 84; TEMP 97.7
[2023-10-11 07:00] VITALS: BP_SYST 129
[2023-10-11] MEDS ORDERED: ZANAFLEX2 MG PO (09:28)
[2023-10-11] MEDS ORDERED: CARDURA 2MG2 MG PO (09:28)
[2023-10-11] MEDS ORDERED: ASPIRIN E.C. 8181 MG PO (09:29)
[2023-10-11] MEDS ORDERED: LOPRESSOR 550 MG/TAB PO (09:29)
[2023-10-11] MEDS ORDERED: TYLENOL 325MG325 MG PO (09:31)
[2023-10-11] MEDS ORDERED: NEURONTIN600 MG/TAB PO (09:31)
[2023-10-11] MEDS ORDERED: PROTONIX 40MG T40 MG PO (09:32)
[2023-10-11] MEDS ORDERED: DESYREL 50MG50 MG PO (09:32)
[2023-10-11] MEDS ORDERED: BLUE-EMU LIDOC1 EACH TP (09:33)
[2023-10-11] MEDS ORDERED: DUO-KAPS1 CAP PO (09:34)
[2023-10-11] MEDS ORDERED: THIAMINE 1100 MG/TAB PO (09:34)
[2023-10-11] MEDS ORDERED: NORMAL SALINE F10 ML IV (09:36)
[2023-10-11] MEDS ORDERED: ULTRAM 50MG TAB50 MG PO (09:37)
[2023-10-11] MEDS ORDERED: ROXICODONE 55 MG/TAB PO (09:37)
[2023-10-11] MEDS ORDERED: PREDNISONE50 MG PO (10:23)
== END 2023-10-11 14:50 | disposition home or self-care (01) | DRG 948 ==
PROVIDERS: Physician Assistant; ADMIT Physical Medicine & Rehabilitation Sports Medicine
DX: R53.81 Other malaise (principal); G40.509 Epileptic seizures related to external causes, not intractable, without status epilepticus; E87.1 Hypo-osmolality and hyponatremia; E44.0 Moderate protein-calorie malnutrition; Z68.1 Body mass index [BMI] 19.9 or less, adult; T84.623D Infection and inflammatory reaction due to internal fixation device of left tibia, subsequent encounter; F32.A Depression, unspecified; F41.9 Anxiety disorder, unspecified; D64.9 Anemia, unspecified; Z74.09 Other reduced mobility; I12.9 Hypertensive chronic kidney disease with stage 1 through stage 4 chronic kidney disease, or unspecified chronic kidney disease; E03.9 Hypothyroidism, unspecified; G89.29 Other chronic pain; M54.50 Low back pain, unspecified; N18.30 Chronic kidney disease, stage 3 unspecified; R26.89 Other abnormalities of gait and mobility
CPT/HCPCS: A9284; J0878

== ENCOUNTER 2023-11-03 14:42 | Emergency (ER) | payer OTHER ==
[~2023-11-03] VITALS: Ht 165.1 cm; Wt 59.1 kg
[~2023-11-03 14:42] MED LIST changes: +ASPIRIN E.C. 8181 MG PO; +BLUE-EMU LIDOC1 EACH TP; +DESYREL 50MG50 MG PO; +DUO-KAPS1 CAP PO; +NORMAL SALINE F10 ML IV; +PREDNISONE50 MG PO; +ROXICODONE 55 MG/TAB PO; +THIAMINE 1100 MG/TAB PO; +TYLENOL 325MG325 MG PO; +ZANAFLEX2 MG PO
[2023-11-03 14:45] VITALS: TEMP 97.5
[2023-11-03 15:14] LABS: BASO # 0.1 K/mm3 (0.0-0.2); EOS # 0.4 K/mm3 (0.0-0.7); EOS % 6.1 % (0.0-4.0); GRAN # 3.5 K/mm3 (1.4-6.5); GRAN % 58.5 % (42.2-75.2); HEMOGLOBIN 10.5 g/dl (12.5-16.0); LYMPH # 1.6 K/mm3 (1.2-3.4); LYMPH % 27.1 % (20.0-51.0); MEAN CELL VOLUME 81 fl (80.0-100.0); MEAN CORPUSCULAR HEMOGLOBIN 25 pg (27-31); MEAN CORPUSCULAR HGB CONC 31 g/dl (33.0-37.0); MEAN PLATELET VOLUME 8.8 fl (7.4-10.4); MONO # 0.4 K/mm3 (0.1-0.6); MONO % 7.1 % (1.7-9.3); PLATELET COUNT 346 K/mm3 (130-400); REDCELL DISTRIBUTION WIDTH-CV 19.8 % (11.5-14.5)
[2023-11-03 15:32] LABS: BILIRUBIN,TOTAL 0.5 mg/dL (0.2-1.2); C-REACTIVE PROTEIN 0.1 mg/dL (0.00-0.50); CALCIUM 10.6 mg/dL (8.4-10.2); CREATININE, serum 1.08 mg/dL (0.57-1.11); POTASSIUM 4.8 mEq/L (3.5-4.5); TOTAL PROTEIN 7.2 g/dl (6.2-8.1)
[2023-11-03] MEDS ORDERED: NORCO 325 MG-51 TAB PO (16:21)
[2023-11-03 16:31] VITALS: BP 166/70; PULSE 85
== END 2023-11-03 16:32 | disposition home or self-care (01) ==
LOC: COL.ER 14:42
PROVIDERS: Family Medicine
DX: L97.929 Non-pressure chronic ulcer of unspecified part of left lower leg with unspecified severity (principal)

== ENCOUNTER → 2023-12-20 | Outpatient (CLI) | payer OTHER ==
[~2023-12-20] MED LIST changes: +ATARAX 25MG25 MG/TAB PO; +BACTRIM DS 8001 TAB PO; +FIRST-MOUTHWASH1 KIT PO; +LEVOXYL0.175 MG PO; +ZyrTEC PO
== END ==
LOC: MHCPAIN 12:49
DX: M54.50 Low back pain, unspecified (principal); M48.54XS Collapsed vertebra, not elsewhere classified, thoracic region, sequela of fracture; M48.56XS Collapsed vertebra, not elsewhere classified, lumbar region, sequela of fracture; G89.29 Other chronic pain; M81.0 Age-related osteoporosis without current pathological fracture; M79.2 Neuralgia and neuritis, unspecified
CPT/HCPCS: G0463

== ENCOUNTER 2023-12-26 14:01 | Inpatient (IN) | payer OTHER ==
[2023-12-26] VITALS (258 sets, daily range): BP systolic 110–115; BP diastolic 69–70; PULSE 88–92; TEMP 97.8–98.4; O2SAT 81–100
[~2023-12-26] VITALS: Ht 165.1 cm; Wt 62.4 kg
[~2023-12-26 14:01] MED LIST changes: -ATARAX 25MG25 MG/TAB PO; -BACTRIM DS 8001 TAB PO; -FIRST-MOUTHWASH1 KIT PO; -LEVOXYL0.175 MG PO; -ZyrTEC PO
[2023-12-26] MEDS ORDERED: NS 1,000 ML IV ONE (14:30)
[2023-12-26 14:34] LABS: BASO % 0.2 % (0.0-2.0); EOS # 0.6 K/mm3 (0.0-0.7); EOS % 4.2 % (0.0-4.0); GRAN # 10.8 K/mm3 (1.4-6.5); HEMOGLOBIN 11.2 g/dl (12.5-16.0); LYMPH # 1.2 K/mm3 (1.2-3.4); LYMPH % 9.3 % (20.0-51.0); MEAN CELL VOLUME 79 fl (80.0-100.0); MEAN CORPUSCULAR HEMOGLOBIN 27 pg (27-31); MEAN CORPUSCULAR HGB CONC 33 g/dl (33.0-37.0); MEAN PLATELET VOLUME 8.8 fl (7.4-10.4); MONO # 0.4 K/mm3 (0.1-0.6); MONO % 2.9 % (1.7-9.3); PLATELET COUNT 449 K/mm3 (130-400); RED BLOOD COUNT 4.23 M/mm3 (4.10-5.30); REDCELL DISTRIBUTION WIDTH-CV 14.6 % (11.5-14.5)
[2023-12-26 14:38] LABS: HEMATOCRIT 33.6 % (37.0-47.0)
[2023-12-26] MEDS ORDERED: Ondansetron 4 MG/2 ML VIAL IV ONE (14:45)
[2023-12-26 14:56] LABS: ALANINE AMINOTRANSFERASE 11 U/L (0-55); ALBUMIN 4.1 g/dL (3.5-5.0); ALKALINE PHOSPHATASE 143 U/L (40-150); ANION GAP 14 mmol/L (7-16); AST,SGOT 15 U/L (5-34); BILIRUBIN,TOTAL 0.2 mg/dL (0.2-1.2); BLOOD UREA NITROGEN 16 mg/dL (10-20); C-REACTIVE PROTEIN 0.17 mg/dL (0.00-0.50); CALCIUM 10.6 mg/dL (8.4-10.2); CHLORIDE 93 mEq/L (98-107); CREATININE, serum 1.34 mg/dL (0.57-1.11); GLUCOSE 118 mg/dL (70-99); POTASSIUM 4.7 mEq/L (3.5-4.5); SODIUM 123 mEq/L (136-145); TOTAL PROTEIN 7.7 g/dl (6.2-8.1)
[2023-12-26 15:14] LABS: TROPONIN-I < 0.010 ng/mL (0.00-0.033)
[2023-12-26 16:07] LABS: COLLECTION METHOD CLEAN CATCH
[2023-12-26] MEDS ORDERED: BACTRIM DS 8001 TAB PO (16:12)
[2023-12-26] MEDS ORDERED: NS 1,000 ML IV SCH (16:15)
[2023-12-26] MEDS ORDERED: Acetaminophen 500 MG TAB PO PRN (16:15)
[2023-12-26] MEDS ORDERED: Ondansetron 4 MG/2 ML VIAL IV PRN (16:15)
[2023-12-26] MEDS ORDERED: Polyethylene Glycol 3350 17 GM PDS PO PRN (16:15)
[2023-12-26] MEDS ORDERED: Docusate Sodium 100 MG CAP PO PRN (16:15)
[2023-12-26 16:18] LABS: URINE APPEARANCE CLEAR (CLEAR/HAZY); URINE BLOOD NEGATIVE (NEGATIVE); URINE COLOR YELLOW (YELLOW); URINE GLUCOSE NEGATIVE (NEGATIVE); URINE KETONE NEGATIVE (NEGATIVE); URINE NITRATE NEGATIVE (NEGATIVE); URINE PROTEIN(semi-quant) 1+ (NEGATIVE); URINE UROBILINOGEN 0.2 E.U/dL (0.2-1.0)
[2023-12-26] MEDS ORDERED: Cyclobenzaprine 10 MG TAB PO PRN (16:30)
[2023-12-26] MEDS ORDERED: Cetirizine 10 MG TAB PO SCH (16:35)
[2023-12-26] MEDS ORDERED: HYDROCORTISONE 1% TP SCH (16:37)
[2023-12-26] MEDS ORDERED: hydrOXYzine HCl 25 MG TAB PO SCH (17:04)
[2023-12-26 17:12] LABS: CREATININE, serum 1.24 mg/dL (0.57-1.11)
[2023-12-26 17:20] LABS: POTASSIUM 5.8 mEq/L (3.5-4.5)
--- NOTE | 2023-12-26 17:39 | NUR ---
Arrived to the unit from ER. Patient alert and oriented and in no distress. Able to self transfer with stand by assist only. Assessment completed and attached to all monitors. Call light left within reach.
--- NOTE | 2023-12-26 18:35 | NUR ---
Discussed latest potassium results with hospitalist. Potassium inceased by 11 points in 2 hours. Suspicious for error in lab. Will re-draw at this time.
[2023-12-26 19:09] LABS: CALCIUM 10.1 mg/dL (8.4-10.2); CREATININE, serum 1.21 mg/dL (0.57-1.11); POTASSIUM 5.4 mEq/L (3.5-4.5)
--- NOTE | 2023-12-26 19:20 | NUR ---
PROVIDER ON THE UNIT DURING REPORT. DISCUSSED IF HYPONATREMIA COULD BE RELATED TO THYROID. FREE T4 ADDED TO SAMPLE IN LAB. PT IS CURRENTLY EATING EVENING MEAL. NO SIGN OF DISTRESS AT THIS TIME. CONTINUE PLAN OF CARE.
--- NOTE | 2023-12-26 20:48 | NUR ---
PATIENT ATE 100% EVENING MEAL. PT IS ON 1000 ML/24 HR FLUID RESTRICTION. PT GIVEN ICE CHIPS. PT IS AWARE THAT SHE IS ON A FLUID RESTRICTION. HYDROCORTISONE CREAM IS NOT AVAILABLE AT THIS TIME. WILL BE AVAILABLE WHEN PHARMACY IS HERE IN THE MORNING. PT IS STILL C/O PAIN IN RIGHT SHOULDER. STATES PAIN IS RELATED TO THE COMPRESSION FRACTURES IN HER BACK. PT STATES HER THYROID LEVELS AND SODIUM LEVELS ARE LABILE AT BASELINE. STABLE ON ROUNDS. RESPIRATIONS EVEN AND UNLABORED. NO SIGN OF DISTRESS AT THIS TIME.
[2023-12-26] MEDS ORDERED: Metoprolol Tartrate 50 MG TAB PO SCH (21:00)
[2023-12-26] MEDS ORDERED: levETIRAcetam 500 MG TAB PO SCH (21:00)
[2023-12-26] MEDS ORDERED: Doxycycline Monohydrate 100 MG CAP PO SCH (21:00)
[2023-12-26] MEDS ORDERED: Sulfamethoxazole/Trimethoprim 800-160 MG TAB PO SCH (21:00)
[2023-12-26] MEDS ORDERED: Gabapentin 300 MG CAP PO SCH (21:00)
[2023-12-26] MEDS ORDERED: Famotidine 20 MG TAB PO SCH (21:00)
[2023-12-26] MEDS ORDERED: Amitriptyline 25 MG TAB PO SCH (21:00)
[2023-12-27] VITALS (639 sets, daily range): BP systolic 99–130; BP diastolic 58–78; PULSE 63–90; TEMP 97.9–98.4; O2SAT 81–100
[2023-12-27 01:16] LABS: CALCIUM 9.7 mg/dL (8.4-10.2); CREATININE, serum 1.4 mg/dL (0.57-1.11); POTASSIUM 5.5 mEq/L (3.5-4.5)
[2023-12-27] MEDS ORDERED: Sodium Zirconium Cyclosilicate for Oral Susp 10 GM PACKET PO ONE (02:00)
[2023-12-27 04:37] LABS: BASO % 0.4 % (0.0-2.0); EOS # 0.6 K/mm3 (0.0-0.7); EOS % 8.2 % (0.0-4.0); GRAN # 5.2 K/mm3 (1.4-6.5); GRAN % 75.3 % (42.2-75.2); LYMPH # 0.7 K/mm3 (1.2-3.4); LYMPH % 10.8 % (20.0-51.0); MEAN CELL VOLUME 79 fl (80.0-100.0); MEAN CORPUSCULAR HGB CONC 33 g/dl (33.0-37.0); MEAN PLATELET VOLUME 8.7 fl (7.4-10.4); MONO # 0.3 K/mm3 (0.1-0.6); PLATELET COUNT 366 K/mm3 (130-400); RED BLOOD COUNT 3.72 M/mm3 (4.10-5.30); REDCELL DISTRIBUTION WIDTH-CV 14.6 % (11.5-14.5)
[2023-12-27 05:01] LABS: HEMATOCRIT 29.5 % (37.0-47.0); HEMOGLOBIN 9.8 g/dl (12.5-16.0); MEAN CORPUSCULAR HEMOGLOBIN 26 pg (27-31)
[2023-12-27 05:03] LABS: CALCIUM 9.8 mg/dL (8.4-10.2); CREATININE, serum 1.27 mg/dL (0.57-1.11)
[2023-12-27 05:06] LABS: THYROID STIMULATING HORMONE 76.663 uIU/mL (0.350-4.940)
[2023-12-27 05:16] LABS: POTASSIUM 5.8 mEq/L (3.5-4.5)
[2023-12-27] MEDS ORDERED: Insulin Regular Human (NovoLIN R/HumuLIN R) IV ONE (05:30)
[2023-12-27] MEDS ORDERED: Dextrose 50% Water 25 GM/50 ML SYRINGE IV ONE ×2 (05:30→07:30)
[2023-12-27] MEDS ORDERED: Sodium Bicarbonate 8.4% 50 MEQ/50 ML SYRINGE IV ONE (05:45)
--- NOTE | 2023-12-27 06:14 | NUR ---
POTASSIUM TRENDING UP. PT TREATED WITH GLUCOSE, NA BICARB, & INSULIN IV. WILL CONTINUE TO MONITOR POC GLUCOSE. URINE CLEAR, YELLOW. CK LAB PENDING. PT INFORMED THAT SHE WILL HAVE A BG CHECK Q30 MIN X2. THEN BG Q 1HR X 3. PT STABLE ON ROUNDS. NO SIGN OF DISTRESS AT THIS TIME. CONTINUE PLAN OF CARE.
--- NOTE | 2023-12-27 07:45 | NUR ---
Awake and alert resting in bed. VS stable. Denies any concers or complaints at this time. Call light left within reach.
[2023-12-27] MEDS ORDERED: LEVETIRACETAM PO SCH (09:00)
[2023-12-27] MEDS ORDERED: Doxazosin 1 MG TAB PO SCH (09:00)
[2023-12-27] MEDS ORDERED: DULoxetine 60 MG CAP PO SCH (09:00)
[2023-12-27] MEDS ORDERED: amLODIPine 10 MG TAB PO SCH (09:00)
--- NOTE | 2023-12-27 09:10 | NUR ---
Patient called this nurse into room and requested to look at her mouth. Stated she felt like her tongue was going to "break out" and noted a whitish residue in the inside of the lower lip. No swelling or difficuly with breathing noted. Discussed with Dr. Rasheeda Del Castillo. Will start PRN magic mouthwash for oral discomfort.
[2023-12-27 09:12] LABS: CALCIUM 9.9 mg/dL (8.4-10.2); CREATININE, serum 1.21 mg/dL (0.57-1.11); POTASSIUM 4.7 mEq/L (3.5-4.5)
[2023-12-27] MEDS ORDERED: Lidocaine 2% Viscous 15 ML UNIT DOSE MM ONE (09:30)
[2023-12-27] MEDS ORDERED: AlOH3/diphen/Lidoc/MgOH2/Simet Oral Susp 10 ML UD Syringe PO PRN (09:30)
--- NOTE | 2023-12-27 10:22 | NUR ---
Bobcat Operator met with patient to complete initial intake. Patient lives in [place], [place] with her partner, Julian (ph#[phone]) and sees Ching Joel APRN at [facility] for primary care. Patient gets her medications at [facility] here in [place]. Patient was at this hospital's IPR unit this September and stated she is done with her IV antibiotic course and outpatient PT/OT. Patient stated she is also driving again. Patient has a walker, cane, crutches, wheelchair, and bedside commode available at home. Patient remarked she mostly uses her walker at this time. Patient reported independence with ADLS and plans to return home at time of discharge. Patient has DPOA-HC in EMR designating her partner, Julian. Discharge Plan: Home
[2023-12-27] MEDS ORDERED: DOXYCYCLINE 10100 MG PO (11:35)
[2023-12-27] MEDS ORDERED: ATARAX 25MG25 MG/TAB PO (11:36)
[2023-12-27] MEDS ORDERED: LEVOXYL0.175 MG PO (11:41)
[2023-12-27] MEDS ORDERED: ZyrTEC PO (11:42)
[2023-12-27] MEDS ORDERED: FIRST-MOUTHWASH1 KIT PO (11:44)
--- NOTE | 2023-12-27 12:30 | NUR ---
Discharge packet reviewed with patient. All questions and concerns addressed at this time. Assisted patient out to the ER entrance and left via private vehicle. Alert and oriented and in no distress upon discharge.
== END 2023-12-27 12:30 | disposition home or self-care (01) | DRG 641 ==
LOC: COL.ER 14:01 → ICU 16:11
PROVIDERS: Family Medicine; ADMIT Internal Medicine
DX: E87.1 Hypo-osmolality and hyponatremia (principal); N17.9 Acute kidney failure, unspecified; M81.0 Age-related osteoporosis without current pathological fracture; D50.0 Iron deficiency anemia secondary to blood loss (chronic); F32.A Depression, unspecified; E05.00 Thyrotoxicosis with diffuse goiter without thyrotoxic crisis or storm; G47.00 Insomnia, unspecified; G89.29 Other chronic pain; I10 Essential (primary) hypertension
CPT/HCPCS: A9270; J1650; J1815; J2405; J7030

== ENCOUNTER 2024-02-10 08:22 | Emergency (ER) | payer OTHER ==
[~2024-02-10] VITALS: Ht 165.1 cm; Wt 63.6 kg
[~2024-02-10 08:22] MED LIST changes: +ATARAX 25MG25 MG/TAB PO; +BACTRIM DS 8001 TAB PO; +FIRST-MOUTHWASH1 KIT PO; +LEVOXYL0.175 MG PO; +ZyrTEC PO
[2024-02-10 08:35] VITALS: BP 115/73; TEMP 97.6
[2024-02-10] MEDS ORDERED: AMOXICILLIN 8751 TAB PO (08:51)
[2024-02-10] MEDS ORDERED: NORCO 325 MG-51 TAB PO (08:51)
[2024-02-10 09:05] VITALS: PULSE 87
== END 2024-02-10 09:08 | disposition home or self-care (01) ==
LOC: COL.ER 08:22
DX: K08.89 Other specified disorders of teeth and supporting structures (principal); K04.7 Periapical abscess without sinus